=== PATIENT | male | born 1965 | race Two or more races ===

== ENCOUNTER 2019-11-22 09:23 | Emergency (ER) | payer MEDICAID, OTHER ==
[~2019-11-22] VITALS: Ht 170.2 cm; Wt 81.6 kg
[2019-11-22 10:43] LABS: Basophils # (auto) 0 10 ^3/uL (0-0.2); Basophils % (auto) 0.4 % (0.0-2.0); Eosinophils # (auto) 0.1 10 ^3/uL (0-0.8); Eosinophils % (auto) 0.7 % (0.0-7.0); Hematocrit 48.3 % (41.0-53.0); Hemoglobin 16.6 g/dL (13.5-17.5); Lymphocytes # (auto) 1.6 10 ^3/uL (0.4-5.4); Lymphocytes % (auto) 19.1 % (10.0-50.0); Mean Corpuscular Hemoglobin 28.4 pg (28.0-32.0); Mean Corpuscular Hgb Conc. 34.3 g/dL (32.0-36.0); Mean Corpuscular Volume 82.8 fL (80.0-100.0); Monocytes # (auto) 0.8 10 ^3/uL (0-1.3); Monocytes % (auto) 9.3 % (0.0-12.0); Neutrophils # (auto) 5.8 10 ^3/uL (1.6-8.6); Neutrophils % (auto) 70.5 % (37.0-80.0); Nucleated Red Blood Cells % 0.1 %; Platelet Count (auto) 346 10^3/uL (140-450); Red Blood Cells 5.84 10^6/uL (4.5-5.90); Red Cell Distribution Width 13.7 % (11.8-14.3); White Blood Cell 8.2 10^3/uL (4.4-10.8)
[2019-11-22 11:00] LABS: Albumin 3.9 g/dL (3.4-5.0); Anion Gap 10 (5-15); Blood Alcohol < 3.0 mg/dL (0-5); Blood Urea Nitrogen 17 mg/dL (7-18); Calcium 9.2 mg/dL (8.5-10.1); Carbon Dioxide 20 mmol/L (21-32); Chloride 106 mmol/L (98-107); Glucose 336 mg/dL (74-106); Potassium 3.4 mmol/L (3.5-5.1); Sodium 136 mmol/L (136-145)
[2019-11-22 11:06] LABS: Alanine Aminotransferase 30 U/L (16-61); Alkaline Phosphatase 127 U/L (45-117); Aspartate Aminotransferase 14 U/L (15-37); BUN/Creatinine Ratio 15.9; Bilirubin, Total 1.8 mg/dL (0.2-1.0); GFR African American 92 mL/min; GFR Non-African American 76 mL/min; Total Protein 7.9 g/dL (6.4-8.2)
[2019-11-22 11:58] LABS: Salicylate < 1.7 mg/dL (2.8-20.0)
[2019-11-22 11:59] LABS: Acetaminophen < 2.0 ug/mL (10-30)
[2019-11-22] MEDS ORDERED: POTASSIUM EFFERVESENT TAB 25 MEQ PO ONE (13:30)
[2019-11-22 13:43] LABS: Alcohol, Urine < 3.0 mg/dL (0-10); Amphetamine Screen, Urine POSITIVE (NEGATIVE); Barbiturate Scree,Urine NEGATIVE (NEGATIVE); Benzodiazephine Screen, Urine NEGATIVE (NEGATIVE); Cannabinoid Screen, Urine NEGATIVE (NEGATIVE); Cocaine Screen, Urine NEGATIVE (NEGATIVE); Phencyclidine Screen, Urine NEGATIVE (NEGATIVE)
[2019-11-22 13:50] LABS: Opiate Scree,Urine NEGATIVE (NEGATIVE)
[2019-11-22] MEDS ORDERED: LORazepam 2MG/ML-1ML VIAL IV ONE (20:30)
[2019-11-24] MEDS ORDERED: OLANZapine 5 MG TAB PO ONE (15:15)
[2019-11-24 17:24] VITALS: BP 141/82
== END 2019-11-24 18:09 | disposition short-term general hospital (02) ==
LOC: ER 09:23 → EDBD 09:23 → ER 11-24 18:09
DX: R45.851 Suicidal ideations (principal); F15.10 Other stimulant abuse, uncomplicated; E87.6 Hypokalemia; R73.9 Hyperglycemia, unspecified; R07.89 Other chest pain; I10 Essential (primary) hypertension; F20.9 Schizophrenia, unspecified; F17.210 Nicotine dependence, cigarettes, uncomplicated
CPT/HCPCS: 36415; 71045; 80053; 80307; 80320; 80329; 84484; 85025; 87426; 93005; 96374; 99285; J2060